=== PATIENT | female | born 1940 | race African-American/Black ===

== ENCOUNTER 2021-07-25 09:26 | Emergency (ER) | payer OTHER, MEDICAID ==
[~2021-07-25] VITALS: Ht 170.2 cm; Wt 78.0 kg
[~2021-07-25 09:26] MED LIST: ACET-2708 MT; DOCU-150 MT; ERYT1OIN6 BOTHEYE; FERR325T6 MT; GLIP2.5T17 PO; LABE200T9 MT; LOSA100T32 MT; MINO2.5T2 PO; NIFE-32 MT; PANT40TA51 MT; POLY15DR31 EACHEYE; POTA8CAP20 MT
[2021-07-25] MEDS ORDERED: CLONIDINE (09:33)
[2021-07-25] MEDS ORDERED: DILTIAZEM (09:33)
[2021-07-25] MEDS ORDERED: METOPROLOL (09:33)
[2021-07-25 11:13] LABS: CLARITY URINE CLEAR (CLEAR); COLOR URINE YELLOW (YELLOW); KETONES URINE NEGATIVE (NEGATIVE); LEUKOCYTE ESTERASE URINE 1+ (NEGATIVE); NITRITE URINE NEGATIVE (NEGATIVE); OCCULT BLOOD URINE NEGATIVE (NEGATIVE); PROTEIN URINE NEGATIVE (NEGATIVE); SPECIFIC GRAVITY URINE 1.008 (1.005-1.030); UROBILINOGEN URINE 0.2 E.U./dL (0.2-1.0)
[2021-07-25 11:27] LABS: BASOPHILS % 1.3 % (0.0-2.0); EOSINOPHILS % 2.5 % (0.0-5.0); HEMOGLOBIN. 10.1 g/dL (12.0-16.0); LYMPHOCYTES % 36.6 % (20.0-50.0); MEAN CORPUSCULAR HEMOGLOBIN 26.3 pg (28.0-32.0); MEAN CORPUSCULAR VOLUME 83.7 fL (81.0-99.0); MEAN PLATELET VOLUME 7.5 fl (7.4-10.4); MONOCYTES % 8.8 % (2.0-8.0); NEUTROPHILS % 50.8 % (40.0-76.0); PLATELET 387 x1000/uL (130-400); RED BLOOD CELL COUNT 3.82 mill/uL (4.2-5.4); RED CELL DISTRIBUTION WIDTH 26.8 % (11.6-14.6)
[2021-07-25 11:33] LABS: CHLORIDE 108 mEq/L (98-107)
[2021-07-25] MEDS ORDERED: KETOROLAC 15MG/ML VIAL IV ONE (12:30)
[2021-07-25 12:41] LABS: PLATELET ESTIMATE NORMAL
[2021-07-25] MEDS ORDERED: CIPR250T4 MT (13:53)
[2021-07-25 19:30] VITALS: BP 149/76
== END 2021-07-25 21:08 | disposition home or self-care (01) ==
LOC: ER 09:37
DX: I16.0 Hypertensive urgency (principal); N30.90 Cystitis, unspecified without hematuria; I10 Essential (primary) hypertension; E11.9 Type 2 diabetes mellitus without complications; Z79.899 Other long term (current) drug therapy
CPT/HCPCS: 36415; 70450; 71045; 80053; 81003; 82962; 83880; 84484; 85025; 93005; 96374; 99285; J1885

== ENCOUNTER 2021-11-12 21:41 | Inpatient (IN) | payer MEDICARE, MEDICAID ==
[~2021-11-12] VITALS: Ht 171.4 cm; Wt 70.8 kg
[~2021-11-12 21:41] MED LIST changes: +CIPR250T4 MT; +CLONIDINE; +DILTIAZEM; +METOPROLOL
[2021-11-13] MEDS ORDERED: MORPHINE SULFATE 4 MG/ML CPJ (NOT FOR IM USE) IV STA (00:02)
[2021-11-13 00:18] LABS: CLARITY URINE CLEAR (CLEAR); COLOR URINE YELLOW (YELLOW); KETONES URINE NEGATIVE (NEGATIVE); LEUKOCYTE ESTERASE URINE 2+ (NEGATIVE); NITRITE URINE POSITIVE (NEGATIVE); OCCULT BLOOD URINE NEGATIVE (NEGATIVE); PH URINE 5.5 (4.5-8.0); PROTEIN URINE NEGATIVE (NEGATIVE); SPECIFIC GRAVITY URINE 1.004 (1.005-1.030); UROBILINOGEN URINE 0.2 E.U./dL (0.2-1.0)
[2021-11-13 00:19] LABS: BASOPHILS % 0.3 % (0.0-2.0); EOSINOPHILS % 3.1 % (0.0-5.0); HEMATOCRIT. 27.4 % (36.0-48.0); HEMOGLOBIN. 8.8 g/dL (12.0-16.0); LYMPHOCYTES % 30.5 % (20.0-50.0); MEAN PLATELET VOLUME 6.8 fl (7.4-10.4); MONOCYTES % 8.2 % (2.0-8.0); NEUTROPHILS % 57.9 % (40.0-76.0); PLATELET 300 x1000/uL (130-400); RED BLOOD CELL COUNT 3.39 mill/uL (4.2-5.4); RED CELL DISTRIBUTION WIDTH 17.7 % (11.6-14.6)
[2021-11-13 00:28] LABS: CHLORIDE 102 mEq/L (98-107)
[2021-11-13] MEDS: SODIUM CHLORIDE 0.9% 1,000 ML IV NR ×2 (00:39→01:15)
[2021-11-13] MEDS ORDERED: CEFTRIAXONE SODIUM 1 G/VIAL IM ONE (02:00)
[2021-11-13] MEDS ORDERED: CEFTRIAXONE 1GM PREMIX 50ML IV NR (02:15)
[2021-11-13] MEDS ORDERED: ONDANSETRON HCL 4MG/2ML INJ IV PRN (08:15)
[2021-11-13] MEDS ORDERED: ACETAMINOPHEN 325MG TABLET PO PRN (08:15)
[2021-11-13] MEDS ORDERED: CEFTRIAXONE 1 G PREMIX 50 ML IV SCH (08:15)
[2021-11-13] MEDS: LOSARTAN POTASSIUM 100 MG TABLET PO SCH (09:37)
[2021-11-13] MEDS: LABETALOL HCL 200MG TABLET PO SCH ×2 (09:37→21:23)
[2021-11-13] MEDS: DOCUSATE SODIUM 250MG CAPSULE PO SCH (09:37)
[2021-11-13 13:25] VITALS: BP 110/61
[2021-11-13 14:00] VITALS: BP 110/61
[2021-11-13] MEDS ORDERED: ASPI-1406 PO (16:39)
[2021-11-13] MEDS ORDERED: NA PHOS,M-B/NA PHOS,DI-BA ENEMA 118ML PR NR (18:00)
[2021-11-13 20:00] VITALS: BP 123/57
[2021-11-13] MEDS ORDERED: SORBITOL 70% SOLN 30ML PO NR (21:00)
[2021-11-14] MEDS ORDERED: CEFTRIAXONE 1,000 MG in DEXTROSE 5% WATER 50 ML IV SCH (06:00)
[2021-11-14] MEDS ORDERED: SORBITOL 70% SOLN 30ML PO NR (06:00)
[2021-11-14 06:40] LABS: BASOPHILS % 0.7 % (0.0-2.0); HEMOGLOBIN. 8.8 g/dL (12.0-16.0); LYMPHOCYTES % 42.2 % (20.0-50.0); MEAN CORPUSCULAR HEMOGLOBIN 25.7 pg (28.0-32.0); MEAN CORPUSCULAR VOLUME 81.3 fL (81.0-99.0); MEAN PLATELET VOLUME 7.5 fl (7.4-10.4); MONOCYTES % 12.2 % (2.0-8.0); NEUTROPHILS % 39.9 % (40.0-76.0); PLATELET 291 x1000/uL (130-400); RED BLOOD CELL COUNT 3.44 mill/uL (4.2-5.4); RED CELL DISTRIBUTION WIDTH 17.9 % (11.6-14.6)
[2021-11-14 06:52] LABS: PROTHROMBIN TIME 10.8 sec (9.6-11.0)
[2021-11-14 07:02] LABS: FERRITIN 25 ng/mL (10-291)
[2021-11-14 07:18] LABS: CHLORIDE 103 mEq/L (98-107)
[2021-11-14 07:29] LABS: TOTAL IRON BINDING CAPACITY 394 ug/dL (250-450)
[2021-11-14 08:00] VITALS: BP 189/83
[2021-11-14] MEDS: DOCUSATE SODIUM 250MG CAPSULE PO SCH (08:07)
[2021-11-14] MEDS: LOSARTAN POTASSIUM 100 MG TABLET PO SCH (08:07)
[2021-11-14] MEDS: LABETALOL HCL 200MG TABLET PO SCH (08:08)
[2021-11-14] MEDS ORDERED: NA PHOS,M-B/NA PHOS,DI-BA ENEMA 118ML PR NR (08:15)
[2021-11-14] MEDS ORDERED: MAGNESIUM/ALUMINUM HYDROXIDE/SIMETHICONE 30ML UDC PO PRN (10:00)
[2021-11-14] MEDS ORDERED: FAMOTIDINE 20MG TABLET PO SCH (11:00)
[2021-11-14] MEDS ORDERED: LEVO-65 MT (11:40)
[2021-11-14] MEDS ORDERED: LACTULOSE 20G/30ML UDC PO SCH (11:45)
[2021-11-14 13:48] VITALS: BP 159/83
[2021-11-16 02:21] LABS: VITAMIN B12 SERUM 371 pg/mL (211-911)
== END 2021-11-14 15:00 | disposition home or self-care (01) | DRG 690 ==
LOC: ER 21:41 → EDBEDREQTM 11-13 05:52 → EDBEDREQSVC 11-13 05:52 → EDBEDREQ 11-13 05:52 → ENRESERV 11-13 12:34 → 4WST 11-13 14:14
PROVIDERS: ADMIT Internal Medicine; ATTEND Internal Medicine
DX: N13.6 Pyonephrosis (principal); E87.1 Hypo-osmolality and hyponatremia; K52.9 Noninfective gastroenteritis and colitis, unspecified; D50.9 Iron deficiency anemia, unspecified; Z20.822 Contact with and (suspected) exposure to COVID-19; K59.00 Constipation, unspecified; I10 Essential (primary) hypertension; D25.9 Leiomyoma of uterus, unspecified; M17.11 Unilateral primary osteoarthritis, right knee; D72.819 Decreased white blood cell count, unspecified; E11.9 Type 2 diabetes mellitus without complications; Z88.0 Allergy status to penicillin; Z88.8 Allergy status to other drugs, medicaments and biological substances
CPT/HCPCS: 36415; 74176; 80053; 81003; 82378; 82607; 82728; 82746; 82962; 83540; 83550; 85025; 85044; 87426; 99285; J0696; J7060